=== PATIENT | male | born 2000 | race Two or more races ===

== ENCOUNTER 2020-07-31 08:05 | Emergency (ER) | payer OTHER ==
[~2020-07-31] VITALS: Ht 167.6 cm; Wt 77.1 kg
[2020-07-31] MEDS ORDERED: TETRACAINE HCL 0.5% OPTH(EYE) SOLN 4ML LEFTEYE ONE (09:30)
[2020-07-31] MEDS ORDERED: FLUORESCEIN SOD 1 MG TEST STRIP LEFTEYE ONE (09:30)
[2020-07-31 09:31] VITALS: BP 149/102
== END 2020-07-31 10:48 | disposition home or self-care (01) ==
LOC: ER 08:05
DX: S05.02XA Injury of conjunctiva and corneal abrasion without foreign body, left eye, initial encounter (principal); X58.XXXA Exposure to other specified factors, initial encounter; Y93.89 Activity, other specified; Y92.89 Other specified places as the place of occurrence of the external cause; Y99.0 Civilian activity done for income or pay